=== PATIENT | male | born 1995 | race Two or more races ===

== ENCOUNTER 2023-11-29 09:14 | Emergency (ER) | payer SELFPAY ==
[2023-11-29] MEDS ORDERED: diphenhydrAMINE 50 MG/ML SDV IVPUSH ONE (10:12)
[2023-11-29] MEDS ORDERED: Metoclopramide 10 MG/2 ML SDV IVPUSH ONE (10:12)
[2023-11-29] MEDS ORDERED: Sodium Chloride 0.9% 1,000 ML IV ONE (10:13)
[2023-11-29 10:51] LABS: HEMATOCRIT 45.1 % (42.0-52.0); HEMOGLOBIN 15.9 g/dL (14.0-18.0); MEAN CORPUSCULAR HEMOGLOBIN 32.6 pg (28.0-32.0); MEAN CORPUSCULAR HGB CONC 35.3 g/dL (32.0-36.0); MEAN CORPUSCULAR VOLUME 92.6 fL (83.0-99.0); MEAN PLATELET VOLUME 10.6 fL (9.4-12.4); PLATELET COUNT,PLT 258 K/uL (150-400); RED BLOOD CELL COUNT 4.87 M/uL (4.52-5.90); WHITE BLOOD CELL COUNT,WBC 13.71 K/uL (3.9-11.3)
[2023-11-29 11:01] LABS: BAND ABSOLUTE MAN 0.27; BAND PERCENT MAN 2 %; LYMPHOCYTES ABSOLUTE MAN 2.33 K/uL (1.00-4.80); LYMPHOCYTES PERCENT MAN 17 % (24-44); MONOCYTES ABSOLUTE MAN 2.74 K/uL (0.00-0.80); MONOCYTES PERCENT MAN 20 % (0-8); SEG NEUTROPHILS ABSOLUTE MAN 8.36 K/uL (1.80-7.70); SEG NEUTROPHILS PERCENT MAN 61 % (41-71)
[2023-11-29 11:08] LABS: BILIRUBIN TOTAL 0.8 mg/dL (0.2-1.0); CALCIUM 9.1 mg/dL (8.5-10.1); CARBON DIOXIDE,CO2 29.1 mmol/L (21.0-32.0); CREATININE 0.9 mg/dL (0.8-1.3); EST CRCL DRUG DOSING (CG) 112.21 mL/min; POTASSIUM,K 3.2 mmol/L (3.5-5.1); PROTEIN TOTAL,TP 8.2 g/dL (6.4-8.2)
[2023-11-29] MEDS ORDERED: fentaNYL 50 MCG/ML SDV IVPUSH ONE ×3 (11:10→16:35)
[2023-11-29] MEDS ORDERED: niCARdipine/Normal Saline 20 MG/200 ML BAG IV SCH (11:15)
[2023-11-29 11:31] LABS: INR 0.97 (0.86-1.11); PTT,PARTIAL THROMBOPLSTIN TIME 30.2 SEC (23.9-30.7)
[2023-11-29] MEDS ORDERED: fentaNYL 50 MCG/ML SDV IVPUSH STA (15:00)
== END 2023-11-29 17:08 ==
LOC: MW.ED 09:14
DX: S06.4X0A Epidural hemorrhage without loss of consciousness, initial encounter (principal); I62.9 Nontraumatic intracranial hemorrhage, unspecified; I60.9 Nontraumatic subarachnoid hemorrhage, unspecified; S02.91XA Unspecified fracture of skull, initial encounter for closed fracture; V00.831A Fall from motorized mobility scooter, initial encounter
CPT/HCPCS: 36415; 70450; 72125; 80053; 85025; 85610; 85730; 96365; 96375; 96376; 99291; J1200; J1953; J2765; J3010; J7030; J7060

== ENCOUNTER 2023-12-04 09:39 | Emergency (ER) | payer SELFPAY ==
[2023-12-04] MEDS ORDERED: Morphine 4 MG/ML Syringe IVPUSH STA ×2 (10:18→12:08)
[2023-12-04] MEDS ORDERED: Ondansetron 4 MG/2 ML SDV IVPUSH STA (10:19)
[2023-12-04 10:36] LABS: HEMATOCRIT 46.4 % (42.0-52.0); MEAN CORPUSCULAR HEMOGLOBIN 32.6 pg (28.0-32.0); MEAN CORPUSCULAR HGB CONC 36.6 g/dL (32.0-36.0); MEAN CORPUSCULAR VOLUME 89.1 fL (83.0-99.0); MEAN PLATELET VOLUME 10.4 fL (9.4-12.4); PLATELET COUNT,PLT 225 K/uL (150-400); RED BLOOD CELL COUNT 5.21 M/uL (4.52-5.90); WHITE BLOOD CELL COUNT,WBC 14.56 K/uL (3.9-11.3)
[2023-12-04] MEDS ORDERED: amLODIPine 5 MG Tab PO STA (10:36)
[2023-12-04] MEDS ORDERED: Dexamethasone 4 MG Tab PO STA (10:36)
[2023-12-04] MEDS ORDERED: levETIRAcetam 500 MG Tab PO STA (10:37)
[2023-12-04 10:50] LABS: INR 1.03 (0.86-1.11); PTT,PARTIAL THROMBOPLSTIN TIME 29.6 SEC (23.9-30.7)
[2023-12-04 11:07] LABS: BAND ABSOLUTE MAN 0.15; BAND PERCENT MAN 1 %; LYMPHOCYTES ABSOLUTE MAN 3.06 K/uL (1.00-4.80); LYMPHOCYTES PERCENT MAN 21 % (24-44); MONOCYTES ABSOLUTE MAN 1.31 K/uL (0.00-0.80); MONOCYTES PERCENT MAN 9 % (0-8); REACTIVE LYMPHOCYTES FEW; SEG NEUTROPHILS ABSOLUTE MAN 10.05 K/uL (1.80-7.70); SEG NEUTROPHILS PERCENT MAN 69 % (41-71)
[2023-12-04 11:09] LABS: A/G RATIO 0.9 (0.9-1.6); ALBUMIN 3.5 g/dL (3.4-5.0); BILIRUBIN TOTAL 0.5 mg/dL (0.2-1.0); CALCIUM 8.2 mg/dL (8.5-10.1); CARBON DIOXIDE,CO2 22.2 mmol/L (21.0-32.0); CREATININE 0.9 mg/dL (0.8-1.3); EST CRCL DRUG DOSING (CG) 112.21 mL/min; POTASSIUM,K 3.4 mmol/L (3.5-5.1); PROTEIN TOTAL,TP 7.5 g/dL (6.4-8.2)
[2023-12-04] MEDS ORDERED: Sodium Chloride 0.9% 1,000 ML IV STA (11:15)
[2023-12-04] MEDS ORDERED: Potassium Chloride 20 MEQ Tab.ER PO STA (11:16)
== END 2023-12-04 13:10 | disposition home or self-care (01) ==
LOC: MW.ED 09:39
DX: S06.369A Traumatic hemorrhage of cerebrum, unspecified, with loss of consciousness of unspecified duration, initial encounter (principal); S06.6X9A Traumatic subarachnoid hemorrhage with loss of consciousness of unspecified duration, initial encounter; S02.81XD Fracture of other specified skull and facial bones, right side, subsequent encounter for fracture with routine healing; I10 Essential (primary) hypertension
CPT/HCPCS: 36415; 70450; 80053; 83690; 83735; 85025; 85610; 85730; 96361; 96374; 96375; 99284; A9270; J2270; J2405; J7030; J8540; 99285

== ENCOUNTER 2023-12-09 17:29 | Emergency (ER) | payer SELFPAY ==
[2023-12-09] MEDS ORDERED: Sodium Chloride 0.9% 10 ML Syringe FLUSH PRN (19:08)
[2023-12-09] MEDS ORDERED: Metoclopramide 10 MG/2 ML SDV IVPUSH ONE (19:08)
[2023-12-09] MEDS ORDERED: diphenhydrAMINE 50 MG/ML SDV IVPUSH ONE (19:08)
[2023-12-09] MEDS ORDERED: Sodium Chloride 0.9% 2.5 ML Syringe FLUSH PRN (19:08)
[2023-12-09] MEDS ORDERED: Sodium Chloride 0.9% 1,000 ML IV ONE (19:08)
[2023-12-09] MEDS ORDERED: Albuterol/Ipratropium 3.0-0.5 MG/3 ML Neb Soln NEB ONE (19:09)
[2023-12-09 19:47] LABS: BASOPHILS ABSOLUTE AUTO 0.03 K/uL (0.00-0.20); BASOPHILS PERCENT AUTO 0.3 % (0.0-1.0); EOSINOPHILS ABSOLUTE AUTO 0.07 K/uL (0.00-0.45); EOSINOPHILS PERCENT AUTO 0.7 % (0.0-6.0); HEMATOCRIT 49.6 % (42.0-52.0); HEMOGLOBIN 17.9 g/dL (14.0-18.0); IMMATURE GRAN ABSOLUTE AUTO 0.12 K/uL (0.00-0.05); IMMATURE GRAN PERCENT AUTO 1.2 % (0.0-0.4); LYMPHOCYTES ABSOLUTE AUTO 3.05 K/uL (1.00-4.80); LYMPHOCYTES PERCENT AUTO 29.4 % (24.0-44.0); MEAN CORPUSCULAR HEMOGLOBIN 32.7 pg (28.0-32.0); MEAN CORPUSCULAR HGB CONC 36.1 g/dL (32.0-36.0); MEAN CORPUSCULAR VOLUME 90.5 fL (83.0-99.0); MONOCYTES ABSOLUTE AUTO 0.87 K/uL (0.00-0.80); MONOCYTES PERCENT AUTO 8.4 % (0.0-8.0); NEUTROPHILS ABSOLUTE AUTO 6.25 K/uL (1.80-7.70); PLATELET COUNT,PLT 325 K/uL (150-400); RED BLOOD CELL COUNT 5.48 M/uL (4.52-5.90); WHITE BLOOD CELL COUNT,WBC 10.39 K/uL (3.9-11.3)
[2023-12-09 20:26] LABS: A/G RATIO 0.9 (0.9-1.6); ALBUMIN 3.6 g/dL (3.4-5.0); BILIRUBIN TOTAL 0.7 mg/dL (0.2-1.0); CARBON DIOXIDE,CO2 25.4 mmol/L (21.0-32.0); CREATININE 1.1 mg/dL (0.8-1.3); EST CRCL DRUG DOSING (CG) 91.81 mL/min; MAGNESIUM 2.2 mg/dL (1.8-2.4); POTASSIUM,K 3.9 mmol/L (3.5-5.1); PROTEIN TOTAL,TP 7.7 g/dL (6.4-8.2)
[2023-12-09] MEDS ORDERED: Acetaminophen/oxyCODONE 325-5 MG Tab PO ONE (20:38)
== END 2023-12-09 20:58 | disposition home or self-care (01) ==
LOC: MW.ED 17:29
DX: S06.360A Traumatic hemorrhage of cerebrum, unspecified, without loss of consciousness, initial encounter (principal); F07.81 Postconcussional syndrome; I10 Essential (primary) hypertension; Z79.899 Other long term (current) drug therapy; V00.831A Fall from motorized mobility scooter, initial encounter; Y92.009 Unspecified place in unspecified non-institutional (private) residence as the place of occurrence of the external cause
CPT/HCPCS: 36415; 70450; 80053; 83735; 85025; 96361; 96374; 96375; 99284; A9270; J1200; J2765; J3490; J7030; J7620-GY